=== PATIENT | male | born 1975 | race African-American/Black ===

== ENCOUNTER 2016-08-30 20:03 | Emergency (ER) | payer MEDICARE, MEDICAID ==
[~2016-08-30] VITALS: Ht 175.3 cm; Wt 88.0 kg
[2016-08-31 00:53] VITALS: BP 104/62
== END 2016-08-31 01:50 | disposition home or self-care (01) ==
LOC: ER 20:03
DX: Z00.5 Encounter for examination of potential donor of organ and tissue (principal); J20.9 Acute bronchitis, unspecified; F20.9 Schizophrenia, unspecified
CPT/HCPCS: 99281